=== PATIENT | female | born 1985 | race Caucasian/White ===

== ENCOUNTER → 2016-06-14 | Outpatient (CLI) | payer OTHER ==
[~2016-06-14] MED LIST: MELATONIN5 M1 PO; NEURONTIN600 MG/TAB PO; NORCO 325 MG-51 TAB PO; PERCOCET 325 MG1 TA2 PO; WELLBUTRIN XL150 MG PO
[2016-06-14 13:40] LABS: URIC ACID 3.9 mg/dL (2.5-6.2)
[2016-06-14 14:06] LABS: C-REACTIVE PROTEIN < 0.5 mg/dL (0.0-0.9)
== END ==
LOC: COL.LAB 10:03
PROVIDERS: Orthopaedic Surgery Sports Medicine
DX: M79.646 Pain in unspecified finger(s) (principal); Z82.61 Family history of arthritis

== ENCOUNTER → 2016-07-06 | Outpatient (CLI) | payer OTHER | LOC: COL.RAD 14:45 | DX: M79.642 Pain in left hand (principal) ==